=== PATIENT | female | born 1990 | race Caucasian/White ===

== ENCOUNTER → 2024-11-14 | Outpatient (CLI) | payer BC, SELFPAY ==
--- NOTE | 2024-11-14 14:35 | XR_ITS ---
Examination: Diagnostic digital mammography, unilateral, right Computer aided detection 3-D breast Tomosynthesis, unilateral Date and time of exam: November 14, 2024 1447 hours INDICATIONS: Right breast pain beginning 2 years ago Technique: Nonmagnified MLO, CC views of the right breast have been obtained, reconstructed from 3-D Tomosynthesis images. R2 computer aided detection program utilized for evaluation of suspicious masses and/or abnormal calcifications. 3-D Tomosynthesis images obtained. Findings: The breast is heterogeneously dense, which may obscure small masses 23 mm focal asymmetry outer lower right breast posterior depth Impression: BI-RADS category 0: Incomplete: Need additional imaging evaluation Recommend follow-up spot tomographic views of 23 mm focal asymmetry outer lower right breast as well as right breast sonography to complete the workup
--- NOTE | 2024-11-14 14:38 | XR_ITS ---
Examination: Breast ultrasound, unilateral, right complete Date and time of exam: November 14, 2024 1447 hours INDICATIONS: Right breast pain beginning 2 years ago Technique: Real-time vicente scale ultrasonographic imaging performed right breast including all 4 quadrants as well as nipple retroareolar and axillary region. Findings: 11:00 cyst 3 x 3 mm No solid nodules IMPRESSION: BI-RADS Category 2: Benign findings
== END | disposition home or self-care (01) ==
PROVIDERS: PCP Family Medicine; Referring Provider Physician Assistant Medical; Visit Provider Physician Assistant Medical
DX: N64.89 Other specified disorders of breast (principal)
CPT/HCPCS: 76641; 77061; 77065; G0279

== ENCOUNTER → 2024-11-21 | Outpatient (CLI) | payer BC, SELFPAY ==
--- NOTE | 2024-11-21 14:06 | XR_ITS ---
Examination: Breast ultrasound, unilateral, right Date and time of exam: November 21, 2024 1444 hours INDICATIONS: Mammogram November 14, 2024 23 mm focal asymmetry outer lower right breast posterior depth Technique: Real-time vicente scale ultrasonographic imaging performed right breast including all 4 quadrants as well as nipple retroareolar and axillary region. Findings: 6:00 cyst 3 x 4 mm No solid nodules IMPRESSION: BI-RADS Category 2: Benign findings
--- NOTE | 2024-11-21 14:12 | XR_ITS ---
Examination: Diagnostic digital mammography, unilateral, right Computer aided detection 3-D breast Tomosynthesis, unilateral Date and time of exam: November 21, 2024 1455 hours INDICATIONS: Mammogram November 14, 2024 23 mm focal asymmetry outer lower right breast Technique: Nonmagnified MLO, CC views of the right breast have been obtained, reconstructed from 3-D Tomosynthesis images. R2 computer aided detection program utilized for evaluation of suspicious masses and/or abnormal calcifications. 3-D Tomosynthesis images obtained. Findings: The breast is heterogeneously dense, which may obscure small masses Probably benign glandular tissue outer right breast Impression: BI-RADS category 3: Probably benign findings Recommend 1 additional 6 month right mammogram follow-up
== END | disposition home or self-care (01) ==
PROVIDERS: PCP Family Medicine; Referring Provider Physician Assistant Medical; Visit Provider Physician Assistant Medical
DX: R92.331 Mammographic heterogeneous density, right breast (principal)
CPT/HCPCS: 76641; 77061; 77065; G0279

== ENCOUNTER → 2025-02-05 | Outpatient (CLI) | payer BC, SELFPAY ==
--- NOTE | 2025-02-05 16:14 | XR_ITS ---
EXAMINATION: PA lateral chest 2 views TECHNIQUE: Upright PA lateral chest 2 views Date and time: February 05, 2025, 1614 hours INDICATIONS: Preop FINDINGS: Normal heart size. The lungs are clear. Osseous structures are intact IMPRESSION: No active disease
== END | disposition home or self-care (01) ==
PROVIDERS: PCP Family Medicine; Referring Provider Urology; Visit Provider Urology
DX: N20.1 Calculus of ureter (principal); Z01.818 Encounter for other preprocedural examination
CPT/HCPCS: 71046